=== PATIENT | male | born 1990 | race Caucasian/White ===

== ENCOUNTER 2017-07-13 11:38 | Emergency (ER) | payer SELFPAY ==
[2017-07-13 11:54] VITALS: BMI 33.0
[2017-07-13 11:58] VITALS: BP 129/84; TEMP 98.5
--- NOTE | 2017-07-13 12:29 | C.PDOC ---
History Of Present Illness 26 y/o male presents to ED with complaints of intermittent chest burning sensation for 1 month. Patient reports pain more frequent which prompted visit to ED and states symptoms are related to eating spicy food and drinking soda. Patient states symptoms improve when burping or taking Mylanta. Patient deniesfever, chills, n/v/d, sob, cough, leg swelling or any other complaints at this time. Time Seen by Provider: 07/13/17 12:01 Chief Complaint (Nursing): Chest Pain History Per: Patient History/Exam Limitations: no limitations Onset/Duration Of Symptoms: Days Current Symptoms Are (Timing): Still Present Quality: Burning Past Medical History Reviewed: Historical Data, Nursing Documentation, Vital Signs Vital Signs: Last Vital Signs Temp 98.5 F 07/13/17 11:54 Pulse 65 07/13/17 12:36 Resp 18 07/13/17 12:36 BP 129/84 07/13/17 11:54 Pulse Ox 97 07/13/17 12:36 - Medical History PMH: No Chronic Diseases Surgical History: No Surg Hx Family History: States: No Known Family Hx - Social History Hx Tobacco Use: No Hx Alcohol Use: No Hx Substance Use: No - Immunization History Hx Tetanus Toxoid Vaccination: No Hx Influenza Vaccination: Yes Hx Pneumococcal Vaccination: No Review Of Systems Constitutional: Negative for: Fever, Chills Cardiovascular: Positive for: Chest Pain Respiratory: Negative for: Cough, Shortness of Breath Gastrointestinal: Negative for: Nausea, Vomiting, Diarrhea Skin: Negative for: Rash Physical Exam - Physical Exam Additional Physical Exam Comments: Constitutional: No acute distress. WDWN. Head: Normocephalic. Atraumatic. Eyes: PERRL. EOMI. ENT: Moist mucous membranes. Neck: Supple. Cardiovascular: Regular rate and rhythm. Chest: No tenderness. Respiratory: Clear to auscultation bilaterally. GI: Soft. Nontender. Nondistended. Normoactive bowel sounds. No rebound. No guarding. Back: No CVA and no mid-line tenderness. Musculoskeletal: No tenderness or swelling of extremities. No pedal edema Skin: No rash. Neurologic: Alert, no focal deficit. ED Course And Treatment ECG: Interpreted By Me, Viewed By Me ECG Rhythm: Sinus Rhythm Rate From EC (bpm) O2 Sat by Pulse Oximetry: 98 (ra) Pulse Ox Interpretation: Normal Disposition Counseled Patient/Family Regarding: Diagnosis, Need For Followup, Rx Given - Disposition Referrals: [facility] [Outside] Disposition: HOME/ ROUTINE Disposition Time: 12:27 Condition: STABLE Additional Instructions: Avoid spicy foods, carbonated drinks, alcohol, junk food. Wait three hours after eating before lying down. Keep food diary. Take Pepcid as prescribed. Follow up with your PMD or in medical clinic. Return to ER for any worsening symptoms. Prescriptions: Famotidine [Pepcid] 20 mg PO DAILY #30 tab Instructions: Gastritis (ED) Forms: [employer] (Bengali), Work Excuse - Clinical Impression Clinical Impression: Gastritis - PA / [employer] / Resident Statement MD/DO has reviewed & agrees with the documentation as recorded. - Scribe Statement The provider has reviewed the documentation as recorded by the Mikeibthad Perez All medical record entries made by the Mikeibthad were at my direction and personally dictated by me. I have reviewed the chart and agree that the record accurately reflects my personal performance of the history, physical exam, medical decision making, and the department course for this patient. I have also personally directed, reviewed, and agree with the discharge instructions and disposition.
[2017-07-13 12:36] VITALS: PULSE 65; RESP 18
[2017-07-13 13:03] VITALS: O2SAT 98
--- NOTE | 2017-07-18 06:43 | CARD ---
APPROVED REPORT EKG Measurement Heart [id number] <Conclusion> Normal sinus rhythm Normal ECG
== END 2017-07-13 12:40 | disposition home or self-care (01) ==
LOC: C.ER 11:38
DX: K29.70 Gastritis, unspecified, without bleeding (principal)